=== PATIENT | male | born 1955 | race Caucasian/White ===

== ENCOUNTER 2017-04-24 07:04 | Day surgery (SDC) | payer BC, MEDICAID ==
[2017-04-24] MEDS ORDERED: Dextrose 5%-Lactated Ringers 1,000 ML IV SCH ×2 (09:00→13:45)
[2017-04-24] MEDS ORDERED: Glycopyrrolate 0.2 MG/ML 2 ML SDV IVPUSH ONE (09:00)
[2017-04-24] MEDS ORDERED: fentaNYL 100 MCG/2 ML SDV ONE (09:43)
[2017-04-24] MEDS ORDERED: Midazolam 1 MG/ML 2 ML SDV ONE (09:43)
[2017-04-24] MEDS ORDERED: Propofol 200 MG/20 ML SDV ONE (09:43)
[2017-04-24 10:50] VITALS: BP 138/90
--- NOTE | 2017-04-28 14:01 | OR ---
DATE OF PROCEDURE: 04/24/2017 PREOPERATIVE DIAGNOSIS: Worsening gastroesophageal reflux disease. POSTOPERATIVE DIAGNOSES: 1. Worsening gastroesophageal reflux disease with active distal esophageal inflammation and possible Granados's esophagus. 2. Proximal duodenitis. OPERATIVE PROCEDURES: Esophagogastroduodenoscopy with: 1. Biopsies of the esophagogastric junction for histologic evaluation. 2. Biopsies of antrum for CLOtest. ANESTHESIA: IV sedation. INDICATION FOR PROCEDURE: This is a 62-year-old presenting with worsening gastroesophageal reflux disease with long-term use of omeprazole. Recently, his symptoms progressed toward more in the way of ongoing heartburn, along with some bilious regurgitation. Plan is to proceed with upper GI endoscopy with biopsies as indicated. Potential risks including bleeding and perforation were discussed, and the patient wishes to proceed. DETAILS OF PROCEDURE: The patient was taken to the operating room and placed in a left lateral decubitus position. IV sedation was administered, after which the upper GI endoscope was passed orally through the length of the esophagus into the stomach with retroflexion view of the fundus, thereafter through the pyloric channel and into the proximal duodenum. Findings included normal hypopharynx, larynx, upper esophageal sphincter, and esophageal body. At the EG junction, there was a moderate hiatal hernia measuring 2-3 cm, and with this, there was a marked inflammation of the distal esophagus. There was 1 linear ulcer present, covered with fibrinous exudate. There was no plaquing or stricturing suggestive of any neoplastic change. There was significant upward extension of the columnar mucosa above the upper gastric folds, suggestive of some possible Granados's esophagus. Within the stomach, apart from the hiatal hernia; no significant abnormalities were noted; passing through the pyloric channel, the patient was noted to have some duodenitis in terms of patchy redness and edema of the mucosa within the duodenal bulb. Beyond that, it did then normalize. At this point, biopsies were obtained from the antrum and sent for CLOtest for H. pylori. Multiple biopsies were then obtained from esophagogastric junction and sent for histologic evaluation. No bleeding from the biopsy sites was seen and the procedure was then concluded. The patient was taken to the recovery room in satisfactory condition. The patient will be seen back in followup on 05/31/17 to discuss the long-term treatment options. He would be a good candidate for an anti-reflux procedure, given his worsening symptoms while on that management. Raman Lawson MD /[id number]
== END 2017-04-24 11:15 | disposition home or self-care (01) ==
LOC: JP.SDS 07:04
PROVIDERS: ATTEND Surgery
DX: K20.9 Esophagitis, unspecified (principal); K44.9 Diaphragmatic hernia without obstruction or gangrene; Z88.8 Allergy status to other drugs, medicaments and biological substances; K57.30 Diverticulosis of large intestine without perforation or abscess without bleeding
CPT/HCPCS: 43239; 87081; J2250; J2704; J3010; J7042; 88305; J3490